=== PATIENT | female | born 1980 | race Caucasian/White ===

== ENCOUNTER → 2017-05-24 | Outpatient (CLI) | payer MEDICAID ==
[~2017-05-24] MED LIST: ACET-461 PO; CEPH-507 PO; CYCL-97; HYDR-3816 PO; HYDR1CAP2 PO; LEVO500T2 PO; MEDROL DOSE PACK PO; METH4TAB PO; RT-ALBUINH IH; SULF-222 PO; TRM50T PO
--- NOTE | 2017-05-24 09:47 | Diagnostic Imaging Report ---
PROCEDURE: US abdomen complete. TECHNIQUE: Multiple real-time grayscale images were obtained over the abdomen in various projections. INDICATION: Abdominal pain. FINDINGS: There is increased echogenicity of the liver compatible with fatty infiltration. There is no biliary duct dilatation. Common bile duct obscured by bowel gas. There is no cholelithiasis, gallbladder wall thickening or pericolic cystic fluid. Pancreas not well-seen due to bowel gas. Spleen is normal in size. Aorta and IVC are not seen due to bowel gas. The kidneys are unremarkable. There is no ascites. IMPRESSION: Technically limited exam due to patient's body habitus and bowel gas. There is increased echogenicity of the liver likely reflecting fatty infiltration. Dictated by: Dictated on workstation # [id number]
== END ==
LOC: RAD 08:08
PROVIDERS: ATTEND Nurse Practitioner Family
DX: R10.84 Generalized abdominal pain (principal)
CPT/HCPCS: 76700

== ENCOUNTER → 2018-01-26 | Outpatient (CLI) | payer MEDICAID ==
[~2018-01-26] MED LIST changes: +HYDR-34 PO; -HYDR-3816 PO
--- NOTE | 2018-01-26 13:34 | Diagnostic Imaging Report ---
PROCEDURE: MRI lumbar spine. TECHNIQUE: Multiplanar, multisequence MRI of the lumbar spine was performed without contrast. INDICATION: Low back pain. No prior studies are available for comparison. There is S-shaped lumbar scoliotic curvature, convex to the left in the upper portion and convex to the right in the lower portion. There is normal lordotic curvature. Vertebral body heights are maintained. No acute compression fracture is identified. There is multilevel degenerative disc disease with disc space narrowing and desiccation as well as endplate osteophyte formation. The conus is unremarkable at the T12-L1 level. T12-L1: Central canal and neural foramina appear patent. L1-L2: Broad-based right paramidline disc bulge is present indenting the ventral thecal sac. Central canal and neural foramina remain patent. L2-L3: Broad-based disc/osteophyte complex indents the ventral thecal sac. There is moderate narrowing of the central canal. There is also narrowing of bilateral lateral recesses. Neural foramina appear patent. L3-L4: Wide-based midline disc bulge is seen indenting ventral thecal sac. There is mild narrowing of the central canal. Neural foramina are patent. L4-L5: No central canal or neural foraminal stenosis is seen. L5-S1: No central canal or neuroforaminal stenosis is identified. Paraspinous tissues are unremarkable. IMPRESSION: Lumbar scoliosis and spondylosis with multilevel central canal, lateral recess and neuroforaminal narrowing described level by level above. No acute compression fracture is seen. Dictated by: Dictated on workstation # [id number]
--- NOTE | 2018-01-26 15:45 | Diagnostic Imaging Report ---
INDICATION: Idiopathic scoliosis. FINDINGS: Image quality is significantly limited due to patient large body habitus. In particular, the lumbar spine is severely compromised. There is mild right convexity mid to lower thoracic scoliotic curvature. Curvature measures approximately 8 degrees. No vertebral body anomaly is seen. There appears to be more significant left convexity lumbar scoliotic curvature. Measurements are difficult due to image quality but angles approximately 44 degrees. Assessment for anomaly cannot be performed. IMPRESSION: Thoracolumbar scoliosis. Dictated by: Dictated on workstation # [id number]
== END ==
LOC: RAD 09:17
PROVIDERS: ATTEND Registered Nurse
DX: M48.061 Spinal stenosis, lumbar region without neurogenic claudication (principal); M51.36 Other intervertebral disc degeneration, lumbar region; M51.26 Other intervertebral disc displacement, lumbar region; M47.816 Spondylosis without myelopathy or radiculopathy, lumbar region; M99.73 Connective tissue and disc stenosis of intervertebral foramina of lumbar region; M41.25 Other idiopathic scoliosis, thoracolumbar region
CPT/HCPCS: 72081; 72148

== ENCOUNTER → 2020-02-20 | Outpatient (CLI) | payer MEDICAID ==
--- NOTE | 2020-02-20 15:50 | Diagnostic Imaging Report ---
INDICATION: Back pain and scoliosis. TIME OF EXAM: 2:06 PM. TECHNIQUE: Frontal and lateral views of the lumbar spine were obtained. FINDINGS: There is left convexity upper lumbar scoliotic curvature with right convexity lower lumbar scoliotic curvature. Severe degenerative disc disease at the L1-2 and L2-3 levels is noted with disc space narrowing and marginal osteophyte formation. The vertebral body heights appear to be maintained. No acute compression fracture is seen. IMPRESSION: Spondylosis and scoliosis. No acute bony abnormality is detected. Dictated by: Dictated on workstation # [id number]
== END ==
LOC: RAD 13:54
PROVIDERS: ATTEND Nurse Practitioner Family
DX: M54.31 Sciatica, right side (principal); M47.816 Spondylosis without myelopathy or radiculopathy, lumbar region; M41.86 Other forms of scoliosis, lumbar region
CPT/HCPCS: 72100

== ENCOUNTER 2022-05-01 10:52 | Emergency (ER) | payer MEDICAID ==
[~2022-05-01] VITALS: Ht 157 cm; Wt 133.0 kg
[~2022-05-01 10:52] MED LIST changes: +ALBU8.5H6 IH; -RT-ALBUINH IH
--- NOTE | 2022-05-01 11:27 | ED Abdominal Pain ---
General Chief Complaint: Abdominal/GI Problems Stated Complaint: LEFT SIDE ABD PAIN/FEVER Nursing Triage Note: PT AMB TO TRIAGE, PT HAS L SIDED ABD PAIN 9/10. PT STATES STARTED 1 WEEK AGO AND HAS KEPT GETTING WORSE. PT VOMITED LAST PM AND HAS HAD FEVER OVER 101 TODAY. LAST BM THIS AM NORMAL. PT STATES ALSO PAINFUL TO VOID Source of Information: Patient Exam Limitations: No Limitations History of Present Illness Date Seen by Provider: May 01, 2022 Time Seen by Provider: 11:15 Initial Comments Patient is a 41-year-old female who presents to the emergency department for evaluation of severe left-sided abdominal pain. She states the pain started about a week ago but was very mild and is progressively worsened. She states she had 1 episode of emesis yesterday as well as fever. No fever today. Last bowel movement was this morning. She denies any urinary symptoms. Denies any blood in the stool or vomit. Denies any history of similar symptoms. She has taken no medications today. Allergies and Home Medications Allergies Coded Allergies: clindamycin (Verified Allergy, Unknown, 10/04/07) Uncoded Allergies: PCN (Allergy, Unknown, 11/28/13) Patient Home Medication List Home Medication List Reviewed: Yes Albuterol Sulfate (Ventolin Hfa) 8.5 Gm Hfa.aer.ad, 8.5 GM IH Q4H PRN for SHORTNESS OF BREATH, (Reported) Entered as Reported by: TON LOREDO on 07/10/151928 Amoxicillin/Potassium Clav (Amox Tr-K Clv 875-125 mg Tab) 875 Mg-125 Mg Tablet, 1 EACH PO TID Prescribed by: Jamaal Gibbs on 05/02/22 1604 Cephalexin (Keflex) 500 Mg Capsule, 500 MG PO BID, (Reported) Entered as Reported by: TON LOREDO on 07/10/151928 Hydrocodone Bit/Acetaminophen (Lortab 7.5 Mg Tablet) 1 Each Tablet, 1 EACH PO BID PRN for PAIN, (Reported) Entered as Reported by: TON LOREDO on 07/10/151928 Hydrocodone Bit/Acetaminophen (HYDROcodone/APAP 5 MG/325 MG TAB) 1 Tab Tab, 1 TAB PO Q6H PRN for PAIN-MODERATE (5-7) Prescribed by: Jamaal Gibbs on 12/18/22 1605 Levofloxacin (Levaquin) 500 Mg Tablet, 500 MG PO DAILY Prescribed by: RAHEEM PETERSEN on 07/10/152099 Methylprednisolone (Medrol) 4 Mg Tab.ds.pk, 4 MG PO UD Prescribed by: RAHEEM PETERSEN on 07/10/152099 [Medrol Dose Pack] , Unknown Dose PO DAILY, (Reported) Entered as Reported by: TON LOREDO on 07/10/151928 Review of Systems Review of Systems Constitutional: no symptoms reported EENTM: No Symptoms Reported Respiratory: No Symptoms Reported Cardiovascular: No Symptoms Reported Gastrointestinal: See HPI, Abdominal Pain Genitourinary: No Symptoms Reported Musculoskeletal: no symptoms reported Skin: no symptoms reported Psychiatric/Neurological: No Symptoms Reported Endocrine: No Symptoms Reported Hematologic/Lymphatic: No Symptoms Reported Past Hdlbhix-Oearuo-Rvimez Hx Patient Social History Tobacco Use?: No Substance use?: Yes Substance type: Marijuana Substance frequency: Once in a while Alcohol Use?: No Pt feels they are or have been: No Immunizations Up To Date Tetanus Booster (TDap): Unknown PED Vaccines UTD: Yes Influenza Vaccine Up-to-Date: No; Not Current First/Initial COVID19 Vaccinat: Y Second COVID19 Vaccination Holden: Y COVID19 Vaccine Brusher Hand: IGNACIO Past Medical History Surgery/Hospitalization HX: HYST, GASTRIC SLEEVE. ADHD, ANXIETY Section, Tubal Ligation Reproductive Disorders: No Sexually Transmitted Disease: No HIV/AIDS: No Kidney Infection, Bladder Infection Scoliosis, Chronic Back Pain Adverse Reaction/Blood Tranf: No Physical Exam Vital Signs Vital Signs - First Documented 05/01/22 11:00 Temp 36.8 Pulse 100 Resp 18 B/P (MAP) 125/85 (98) Pulse Ox 97 Capillary Refill : Less Than 3 Seconds Height/Weight/BMI Height: 5'2" Weight: 316lbs. oz. [id number]; 53.00 BMI Method:Estimated General Appearance: WD/WN, no apparent distress HEENT: PERRL/EOMI, normal ENT inspection, TMs normal, pharynx normal Neck: non-tender, full range of motion, supple, normal inspection Respiratory: chest non-tender, lungs clear, normal breath sounds, no respiratory distress Cardiovascular: regular rate, rhythm Gastrointestinal: normal bowel sounds, soft, tenderness Extremities: normal range of motion, non-tender, normal inspection Neurologic/Psychiatric: no motor/sensory deficits, alert, normal mood/affect, oriented x 3 Skin: normal color, warm/dry Progress/Results/Core Measures Results/Orders Lab Results Laboratory Tests Test 05/01/22 11:20 05/01/22 11:32 Range/Units Urine Color YELLOW Urine Clarity SL CLOUDY Urine pH 6.5 5-9 Urine Specific Dustin 1.025 H 1.016-1.022 Urine Protein NEGATIVE NEGATIVE Urine Glucose (UA) NEGATIVE NEGATIVE Urine Ketones NEGATIVE NEGATIVE Urine Nitrite NEGATIVE NEGATIVE Urine Bilirubin NEGATIVE NEGATIVE Urine Urobilinogen 0.2 < = 1.0 MG/DL Urine Leukocyte Esterase NEGATIVE NEGATIVE Urine RBC (Auto) NEGATIVE NEGATIVE Urine RBC NONE /HPF Urine WBC NONE /HPF Urine Squamous Epithelial Cells 2-5 /HPF Urine Crystals NONE /LPF Urine Bacteria NEGATIVE /HPF Urine Casts NONE /LPF Urine Mucus NEGATIVE /LPF Urine Culture Indicated NO Urine Test NEGATIVE NEGATIVE White Blood Count 10.0 4.3-11.0 10^3/uL Red Blood Count 4.68 3.80-5.11 10^6/uL Hemoglobin 13.7 11.5-16.0 g/dL Hematocrit 42 35-52 % Mean Corpuscular Volume 91 80-99 fL Mean Corpuscular Hemoglobin 29 25-34 pg Mean Corpuscular Hemoglobin Concent 32 32-36 g/dL Red Cell Distribution Width 12.3 10.0-14.5 % Platelet Count 266 130-400 10^3/uL Mean Platelet Volume 10.6 9.0-12.2 fL Immature Granulocyte % (Auto) 0 % Neutrophils (%) (Auto) 71 42-75 % Lymphocytes (%) (Auto) 20 12-44 % Monocytes (%) (Auto) 9 0-12 % Eosinophils (%) (Auto) 1 0-10 % Basophils (%) (Auto) 0 0-10 % Neutrophils # (Auto) 7.0 1.8-7.8 10^3/uL Lymphocytes # (Auto) 2.0 1.0-4.0 10^3/uL Monocytes # (Auto) 0.9 0.0-1.0 10^3/uL Eosinophils # (Auto) 0.1 0.0-0.3 10^3/uL Basophils # (Auto) 0.0 0.0-0.1 10^3/uL Immature Granulocyte # (Auto) 0.0 0.0-0.1 10^3/uL Sodium Level 139 135-145 MMOL/L Potassium Level 4.0 3.6-5.0 MMOL/L Chloride Level 106 98-107 MMOL/L Carbon Dioxide Level 24 21-32 MMOL/L Anion Gap 9 5-14 MMOL/L Blood Urea Nitrogen 10 7-18 MG/DL Creatinine 0.70 0.60-1.30 MG/DL Estimat Glomerular Filtration Rate 110 BUN/Creatinine Ratio 14 Glucose Level 90 70-105 MG/DL Calcium Level 9.1 8.5-10.1 MG/DL Corrected Calcium 9.0 8.5-10.1 MG/DL Total Bilirubin 0.4 0.1-1.0 MG/DL Aspartate Amino Transf (AST/SGOT) 11 5-34 U/L Alanine Aminotransferase (ALT/SGPT) 17 0-55 U/L Alkaline Phosphatase 76 40-136 U/L Total Protein 7.2 6.4-8.2 GM/DL Albumin 4.1 3.2-4.5 GM/DL Lipase 22 8-78 U/L My Orders Orders - JAMAAL GIBBS [employer]PERATOR Cbc With Automated Diff (05/01/22 11:18) Comprehensive Metabolic Panel (05/01/22 11:18) Lipase (05/01/22 11:18) Iv/Invasive Line Insertion .IV INSERT (05/01/22 11:18) Ua Culture If Indicated (05/01/22 11:18) Hcg,Qualitative Urine (05/01/22 11:18) Ct Abdomen/Pelvis W (05/01/22 11:18) Ketorolac Injection (Toradol Injection) (05/01/22 11:30) Iohexol Injection (Omnipaque 350 Mg/Ml 1 (05/01/22 11:45) Ns (Ivpb) (Sodium Chloride 0.9% Ivpb Bag (05/01/22 11:45) Medications Given in ED Vital Signs/I&O 05/01/22 05/01/22 11:00 12:45 Temp 36.8 36.8 Pulse 100 84 Resp 18 18 B/P (MAP) 125/85 (98) 149/89 Pulse Ox 97 99 Blood Pressure Mean: 98 Progress Progress Note : Progress Note Patient is nontoxic and well-hydrated on exam. Vital signs are reassuring. Patient does have left-sided tenderness to palpation on abdominal exam. No abdominal rigidity distention noted. Laboratory evaluation is reassuring. Urinalysis is largely unremarkable. CT of the abdomen pelvis reveals uncomplicated diverticulitis without perforation. We will treat with the course of Augmentin. Patient was given a prescription for narcotic analgesia as well. Follow-up with PCP. Return precautions for urgent symptomology discussed. Patient verbalized understanding. Departure Impression Primary Impression: Diverticulitis of intestine Qualified Codes: K57.32 - Diverticulitis of large intestine without perforation or abscess without bleeding Disposition: HOME, SELF-CARE Condition: Stable Departure-Patient Inst. Decision time for Depature: 12:30 Referrals: [facility] (PCP/Family) Primary Care Physician Patient Instructions: Diverticulitis Scripts Hydrocodone Bit/Acetaminophen (HYDROcodone/APAP 5 MG/325 MG TAB) 1 Tab Tab 1 TAB PO Q6H PRN for PAIN-MODERATE (5-7) for 3 Days, #12 TAB 0 Refills Prov: JAMAAL GIBBS APRN 05/02/22 Amoxicillin/Potassium Clav (Amox Tr-K Clv 875-125 mg Tab) 875 Mg-125 Mg Tablet 1 EACH PO TID for 7 Days, #21 TAB 0 Refills Prov: JAMAAL GIBBS APRN 05/02/22 JAMAAL GIBBS APRN May 01, 2022 11:27
[2022-05-01] MEDS ORDERED: KETOROLAC 15 MG/ML VIAL IVP ONE (11:30)
[2022-05-01 11:33] LABS: BILIRUBIN,URINE NEGATIVE (NEGATIVE); CLARITY,URINE SL CLOUDY; COLOR,URINE YELLOW; GLUCOSE, URINE (UA) NEGATIVE (NEGATIVE); KETONES,URINE NEGATIVE (NEGATIVE); LEUKOCYTE ESTERASE ,URINE NEGATIVE (NEGATIVE); NITRITE,URINE NEGATIVE (NEGATIVE); PH,URINE 6.5 (5-9); PROTEIN,URINE NEGATIVE (NEGATIVE)
[2022-05-01 11:38] LABS: BASOPHILS % (AUTO) 0 % (0-10); EOSINOPHILS # (AUTO) 0.1 10^3/uL (0.0-0.3); EOSINOPHILS % (AUTO) 1 % (0-10); HEMATOCRIT 42 % (35-52); HEMOGLOBIN 13.7 g/dL (11.5-16.0); LYMPHOCYTES % (AUTO) 20 % (12-44); MEAN CORPUSCULAR HEMOGLOBIN 29 pg (25-34); MEAN CORPUSCULAR HGB CONC 32 g/dL (32-36); MEAN CORPUSCULAR VOLUME 91 fL (80-99); MEAN PLATELET VOLUME 10.6 fL (9.0-12.2); MONOCYTES # (AUTO) 0.9 10^3/uL (0.0-1.0); MONOCYTES % (AUTO) 9 % (0-12); NEUTROPHILS % (AUTO) 71 % (42-75); PLATELET COUNT 266 10^3/uL (130-400)
[2022-05-01 11:43] LABS: BACTERIA,URINE NEGATIVE /HPF
[2022-05-01] MEDS ORDERED: NS 100 ML (IVPB) BAG IV ONE (11:45)
[2022-05-01] MEDS ORDERED: IOHEXOL 350 MG/ML 100 ML (OMNIPAQUE 350) VIAL IV ONE (11:45)
[2022-05-01 11:46] LABS: ALBUMIN 4.1 GM/DL (3.2-4.5)
[2022-05-01 11:48] LABS: CALCIUM 9.1 MG/DL (8.5-10.1)
[2022-05-01 11:49] LABS: TOTAL PROTEIN 7.2 GM/DL (6.4-8.2)
[2022-05-01 11:51] LABS: BILIRUBIN,TOTAL 0.4 MG/DL (0.1-1.0)
[2022-05-01 11:52] LABS: CREATININE SERUM 0.7 MG/DL (0.60-1.30)
--- NOTE | 2022-05-01 12:18 | Diagnostic Imaging Report ---
PROCEDURE: CT abdomen and pelvis with contrast. TECHNIQUE: Multiple contiguous axial images were obtained through the abdomen and pelvis after administration of intravenous contrast. Auto Exposure Controls were utilized during the CT exam to meet ALARA standards for radiation dose reduction. All CT scans use one or more of the following dose optimizing techniques: automated exposure control, MA and/or KvP adjustment based on patient size and exam type or iterative reconstruction. INDICATION: Left-sided abdominal pain with nausea, vomiting and fever. COMPARISON: None. DISCUSSION: The lung bases are well-aerated. Normal heart size. No pleural or pericardial fluid. The liver and spleen are enlarged. No liver mass. The gallbladder, pancreas, and adrenal glands are unremarkable. Postoperative changes noted along the stomach. The right kidney is within normal limits. The left kidney is markedly lobulated, likely due to old scarring or infection. No hydronephrosis on either side. No renal stone. The aorta is normal in caliber. Diverticular disease noted throughout the distal colon. Inflammatory changes along the descending colon distally in the region of a diverticulum is consistent with acute uncomplicated diverticulitis. No abscess or perforation. No constipation or obstruction. No ascites or adenopathy. Bladder is decompressed. The uterus appears to be surgically absent. No acute osseous abnormality. Advanced degenerative disease noted within the spine. Levoscoliosis is noted within the lumbar spine. IMPRESSION: 1. Acute uncomplicated diverticulitis of the distal descending colon. 2. Hepatosplenomegaly. Dictated by: Dictated on workstation # [id number]
[2022-05-01] MEDS ORDERED: ACHD5005 PO (12:31)
[2022-05-01] MEDS ORDERED: AMOX1TAB12 PO (12:31)
[2022-05-01 12:45] VITALS: BP 149/89
[2022-05-02] MEDS ORDERED: ACHD5005 PO (16:04)
[2022-05-02] MEDS ORDERED: AMOX1TAB12 PO (16:04)
== END 2022-05-01 12:47 | disposition home or self-care (01) ==
LOC: EDUNIT# 10:52 → ER 10:55
DX: K57.32 Diverticulitis of large intestine without perforation or abscess without bleeding (principal); Z32.02 Encounter for pregnancy test, result negative; Z88.1 Allergy status to other antibiotic agents; Z98.84 Bariatric surgery status
CPT/HCPCS: 36415; 74177; 80053; 81000; 83690; 84703; 85025